=== PATIENT | male | born 1965 | race Caucasian/White ===

== ENCOUNTER 2021-10-15 10:15 | Emergency (ER) | payer OTHER ==
[~2021-10-15] VITALS: Ht 177.8 cm; Wt 86.2 kg
--- NOTE | 2021-10-15 10:35 | NUR ---
The patient is bibs for generalized rash since . starded on "cleanse" and new shampoo 2 weeks ago. denies pain or throat discomfort. Denies SOB. Respiration regular and unlabored. Will continue to monitor the patient.
[2021-10-15] MEDS ORDERED: FAMOTIDINE (20 MG) 20 MG TABLET PO ONE (12:00)
[2021-10-15] MEDS ORDERED: DIPHENHYDRAMINE HCL 12.5 MG/5 ML UDC PO ONE (12:00)
[2021-10-15] MEDS ORDERED: DEXAMETHASONE SOD PHOSPHATE 4 MG/ML VIAL IM ONE (12:00)
[2021-10-15] MEDS ORDERED: FAMOTIDINE (20 MG) 20 MG TABLET ONE (12:02)
[2021-10-15] MEDS ORDERED: DEXAMETHASONE SOD PHOSPHATE 10 MG/ML VIAL ONE (12:02)
[2021-10-15] MEDS ORDERED: diphenhydrAMINE HCL 25 MG CAPSULE ONE (12:02)
[2021-10-15] MEDS ORDERED: LORA10TA7 PO (13:17)
--- NOTE | 2021-10-15 13:19 | NUR ---
COVID ANTIGEN SWAB DONE AND SENT TO THE LAB
[2021-10-15 13:20] VITALS: BP 131/76
--- NOTE | 2021-10-15 13:20 | NUR ---
Patient discharged to home in stable condition. Written and verbal after care instructions given. Patient verbalizes understanding of instruction.
== END 2021-10-15 13:21 | disposition home or self-care (01) ==
LOC: ER 10:18
DX: R21 Rash and other nonspecific skin eruption (principal); Z20.822 Contact with and (suspected) exposure to COVID-19
CPT/HCPCS: 87426; 96372; 99283; C9803; J1100; Q0163 ×2